=== PATIENT | female | born 1975 | race Caucasian/White ===

== ENCOUNTER 2018-10-02 13:19 | Emergency (ER) | payer OTHER ==
[~2018-10-02] VITALS: Ht 162.6 cm; Wt 54.4 kg
== END 2018-10-02 22:24 | disposition home or self-care (01) ==
LOC: ER 13:19
DX: N83.291 Other ovarian cyst, right side (principal)

== ENCOUNTER 2019-08-27 22:39 | Emergency (ER) | payer OTHER ==
[~2019-08-27] VITALS: Ht 162.6 cm; Wt 59.0 kg
[2019-08-28] MEDS ORDERED: MIRALAX17 GM PO (02:20)
== END 2019-08-28 03:25 | disposition home or self-care (01) ==
LOC: ER 22:39
DX: K59.09 Other constipation (principal)